=== PATIENT | male | born 1965 | race Caucasian/White ===

== ENCOUNTER 2021-03-15 17:44 | Inpatient (IN) | payer OTHER ==
[~2021-03-15] VITALS: Ht 180.3 cm; Wt 87.6 kg
[2021-03-15] MEDS ORDERED: ACETAMINOPHEN 325 MG TABLET PO PRN (22:00)
[2021-03-15] MEDS ORDERED: ALBUTEROL SULFATE HFA 90 MCG/PUFF 8 GM INHALER IH ONE (22:00)
[2021-03-15] MEDS ORDERED: MAGNESIUM HYDROXIDE SUSPENSION 30 ML UDCUP PO PRN (22:00)
[2021-03-15 22:17] LABS: BASOPHILS % (AUTO) 1.7 % (0.0-2.0); EOSINOPHILS % (AUTO) 0.7 % (1.0-6.0); HEMOGLOBIN 18.4 g/dL (13.5-17.5); LYMPHOCYTES # (AUTO) 2.1 K/uL (1.0-4.8); LYMPHOCYTES % (AUTO) 29.1 % (22.0-44.0); MEAN CORPUSCULAR HEMOGLOBIN 31.4 pg (26.0-34.0); MEAN CORPUSCULAR HGB CONC 33.3 G/dL (31.0-37.0); MEAN CORPUSCULAR VOLUME 94 fL (80-100); MONOCYTES # (AUTO) 0.7 K/uL (0.1-1.0); MONOCYTES % (AUTO) 9.7 % (2.0-9.0); NEUTROPHILS # (AUTO) 4.3 K/uL (1.8-7.7); NEUTROPHILS % (AUTO) 58.8 % (40.0-70.0); PLATELET COUNT (AUTO) 147 K/uL (150-450); RED BLOOD CELL COUNT(AUTO) 5.87 MIL/uL (4.50-5.90)
[2021-03-15 22:18] LABS: HEMATOCRIT 55.4 % (41-53)
[2021-03-15 22:22] LABS: CALCIUM, TOTAL 9.5 mg/dL (8.8-10.5); CREATININE 2.03 mg/dL (0.60-1.30); POTASSIUM 4.7 mmol/L (3.5-5.1)
[2021-03-15 22:27] LABS: ABG BASE EXCESS -6.9 mmol/L (-2.0-3.0); ABG CARBOXYHEMOGLOBIN 0.3 % (0.0-1.5); ABG HCO3 20.6 mmol/L (22.0-26.0); ABG METHEMOGLOBIN 0.3 % (0.0-1.5); ABG OXYGEN CONTENT 24.2 mL/dL (15.0-23.0); ABG OXYGEN SATURATION 89.7 % (95.0-98.0); ABG OXYHEMOGLOBIN 89.2 % (94.0-100.0); ABG PCO2 26 mmHg (35-45); ABG PH 7.437 (7.35-7.450); ABG TOTAL HEMOGLOBIN 19.4 G/dL (12.0-18.0); O2 DEVICE,BLOOD GAS NRB (ROOM AIR); PO2, ARTERIAL BG 57.7 mmHg (84.0-92.0); SITE, BLOOD GAS RT RADIAL; SOURCE, BLOOD GAS ARTERIAL; TEMPERATURE, FAHRENHEIT, BG 98.6 FAHREN (96.0-98.6)
[2021-03-15 22:34] LABS: COVID AG,FIA SOURCE NASOPHARYNGEAL
[2021-03-15 22:44] LABS: APPEARANCE,URINE CLEAR (CLEAR); BILIRUBIN,URINE NEGATIVE (NEGATIVE); GLUCOSE, URINE (UA) NEGATIVE (NEGATIVE); KETONES,URINE TRACE mg/dL (NEGATIVE); LEUKOCYTE ESTERASE ,URINE NEGATIVE (NEGATIVE); NITRATE,URINE NEGATIVE (NEGATIVE); OCCULT BLOOD,URINE NEGATIVE (NEGATIVE); PROTEIN,URINE POS 1+ (NEGATIVE); UROBILINOGEN,URINE 0.2 mg/dL (<=1.0)
[2021-03-15 22:47] LABS: ALBUMIN 4.2 g/dL (3.4-5.0); BILIRUBIN,TOTAL 2.5 mg/dL (0.1-1.0); TOTAL PROTEIN, SERUM 8.3 g/dL (6.4-8.2)
[2021-03-15 22:51] LABS: AMPHET/METH SCREEN,URINE POSITIVE (NEGATIVE); BARBITURATE SCREEN, URINE NEGATIVE (NEGATIVE); BENZODIAZEPINES SCREEN,URINE NEGATIVE (NEGATIVE); CANNABINOID SCREEN,URINE NEGATIVE (NEGATIVE); COCAINE SCREEN,URINE NEGATIVE (NEGATIVE); METHADONE SCREEN, URINE NEGATIVE (NEGATIVE); OPIATE SCREEN,URINE NEGATIVE (NEGATIVE)
[2021-03-15 22:55] LABS: PHENCYCLIDINE SCREEN,URINE NEGATIVE (NEGATIVE)
[2021-03-15] MEDS: HEPARIN SODIUM,PORCINE 5,000 UNITS/ML VIAL SQ SCH (23:59)
[2021-03-16] MEDS: HEPARIN SODIUM,PORCINE 5,000 UNITS/ML VIAL SQ SCH ×2 (07:20→16:53)
[2021-03-16] MEDS: FAMOTIDINE 20 MG TABLET PO SCH (08:56)
[2021-03-16 10:18] VITALS: BP 129/79
[2021-03-16 11:00] VITALS: BP 123/86
[2021-03-16] MEDS: METOPROLOL TARTRATE 25 MG TABLET PO SCH ×2 (11:44→21:00)
[2021-03-16] MEDS: ASPIRIN 81 MG CHEWABLE TABLET PO SCH (11:44)
[2021-03-16 15:50] VITALS: BP 115/83
[2021-03-16] MEDS ORDERED: INFLUENZA VIRUS VACCINE QVS 2021-22 (6MO+)/PF 60 MCG/0.5 ML SYRINGE IM. ONE (17:15)
[2021-03-16 20:07] VITALS: BP 104/54
[2021-03-16] MEDS ORDERED: FUROSEMIDE 20 MG/2 ML VIAL IVP ONE (20:45)
[2021-03-17 00:03] VITALS: BP 113/75
[2021-03-17] MEDS: HEPARIN SODIUM,PORCINE 5,000 UNITS/ML VIAL SQ SCH ×2 (00:25→08:41)
[2021-03-17 04:00] VITALS: BP 110/75
[2021-03-17 08:00] VITALS: BP 118/81
[2021-03-17] MEDS: FAMOTIDINE 20 MG TABLET PO SCH (08:41)
[2021-03-17] MEDS: ASPIRIN 81 MG CHEWABLE TABLET PO SCH (08:41)
[2021-03-17] MEDS: METOPROLOL TARTRATE 25 MG TABLET PO SCH ×2 (08:42→20:56)
[2021-03-17 12:13] VITALS: BP 108/67
[2021-03-17 13:55] LABS: EOSINOPHILS % (AUTO) 0.8 % (1.0-6.0); LYMPHOCYTES # (AUTO) 1.2 K/uL (1.0-4.8); LYMPHOCYTES % (AUTO) 18.2 % (22.0-44.0); MEAN CORPUSCULAR HEMOGLOBIN 31.6 pg (26.0-34.0); MEAN CORPUSCULAR HGB CONC 33.5 G/dL (31.0-37.0); MEAN CORPUSCULAR VOLUME 94 fL (80-100); MONOCYTES # (AUTO) 0.7 K/uL (0.1-1.0); NEUTROPHILS # (AUTO) 4.6 K/uL (1.8-7.7); PLATELET COUNT (AUTO) 151 K/uL (150-450); RED BLOOD CELL COUNT(AUTO) 6.05 MIL/uL (4.50-5.90); RED CELL DISTRIBUTION WIDTH 15.1 % (11.5-14.5)
[2021-03-17] MEDS: FUROSEMIDE 20 MG TABLET PO SCH (13:55)
[2021-03-17 14:00] LABS: HEMOGLOBIN 19.1 g/dL (13.5-17.5)
[2021-03-17 14:01] LABS: CALCIUM, TOTAL 9.2 mg/dL (8.8-10.5); CREATININE 1.37 mg/dL (0.60-1.30); HEMATOCRIT 57.1 % (41-53); POTASSIUM 4.3 mmol/L (3.5-5.1)
[2021-03-17] MEDS ORDERED: HEPARIN SODIUM,PORCINE 5,000 UNITS/ML VIAL IVP ONE (17:15)
[2021-03-17] MEDS ORDERED: HEPARIN SODIUM 25000 UNITS/D5W 250 ML IV PRN (17:15)
[2021-03-17] MEDS ORDERED: HEPARIN SODIUM,PORCINE 5,000 UNITS/ML VIAL IVP PRN ×2 (17:15)
[2021-03-17 17:26] LABS: ABG BASE EXCESS -0.9 mmol/L (-2.0-3.0); ABG CARBOXYHEMOGLOBIN 0.3 % (0.0-1.5); ABG HCO3 24.4 mmol/L (22.0-26.0); ABG OXYGEN CONTENT 24.9 mL/dL (15.0-23.0); ABG OXYGEN SATURATION 88.8 % (95.0-98.0); ABG OXYHEMOGLOBIN 88.5 % (94.0-100.0); ABG PCO2 33 mmHg (35-45); ABG PH 7.464 (7.35-7.450); ABG TOTAL HEMOGLOBIN 20.1 G/dL (12.0-18.0); O2 DEVICE,BLOOD GAS HI FL CANNULA (ROOM AIR); PO2, ARTERIAL BG 56.4 mmHg (84.0-92.0); SITE, BLOOD GAS RT RADIAL; SOURCE, BLOOD GAS ARTERIAL; TEMPERATURE, FAHRENHEIT, BG 98.6 FAHREN (96.0-98.6)
[2021-03-17 17:50] LABS: BASOPHILS % (AUTO) 0.6 % (0.0-2.0); EOSINOPHILS % (AUTO) 0.7 % (1.0-6.0); HEMATOCRIT 54.5 % (41-53); HEMOGLOBIN 18.4 g/dL (13.5-17.5); LYMPHOCYTES # (AUTO) 1.4 K/uL (1.0-4.8); LYMPHOCYTES % (AUTO) 19.3 % (22.0-44.0); MEAN CORPUSCULAR HEMOGLOBIN 31.4 pg (26.0-34.0); MEAN CORPUSCULAR HGB CONC 33.7 G/dL (31.0-37.0); MEAN CORPUSCULAR VOLUME 93 fL (80-100); MONOCYTES # (AUTO) 0.7 K/uL (0.1-1.0); MONOCYTES % (AUTO) 10.5 % (2.0-9.0); NEUTROPHILS # (AUTO) 4.9 K/uL (1.8-7.7); NEUTROPHILS % (AUTO) 68.9 % (40.0-70.0); PLATELET COUNT (AUTO) 143 K/uL (150-450); RED BLOOD CELL COUNT(AUTO) 5.86 MIL/uL (4.50-5.90)
[2021-03-17 18:03] LABS: INR 1.2 (0.9-1.1); PROTHROMBIN TIME 12.8 SEC (9.4-11.6)
[2021-03-17 19:15] VITALS: BP 125/71
[2021-03-17] MEDS ORDERED: PENTETATE DTPA TC99M/MCL ISOTOPE 1 EA INJ INJ ONE (21:30)
[2021-03-17] MEDS ORDERED: MAA ALBUMIN AGGREGATED TC99M/UD<10MCL ISOTOPE 1 EA INJ INJ ONE (22:10)
[2021-03-17 23:48] VITALS: BP 131/64
[2021-03-18 04:05] VITALS: BP 112/76
[2021-03-18 07:01] VITALS: BP 105/77
[2021-03-18 07:08] LABS: BASOPHILS % (AUTO) 0.9 % (0.0-2.0); EOSINOPHILS % (AUTO) 0.8 % (1.0-6.0); HEMATOCRIT 54.9 % (41-53); HEMOGLOBIN 18.6 g/dL (13.5-17.5); LYMPHOCYTES # (AUTO) 1.8 K/uL (1.0-4.8); LYMPHOCYTES % (AUTO) 25.2 % (22.0-44.0); MEAN CORPUSCULAR HEMOGLOBIN 31.6 pg (26.0-34.0); MEAN CORPUSCULAR HGB CONC 33.9 G/dL (31.0-37.0); MEAN CORPUSCULAR VOLUME 93 fL (80-100); MONOCYTES # (AUTO) 0.8 K/uL (0.1-1.0); MONOCYTES % (AUTO) 10.7 % (2.0-9.0); NEUTROPHILS # (AUTO) 4.4 K/uL (1.8-7.7); NEUTROPHILS % (AUTO) 62.4 % (40.0-70.0); RED BLOOD CELL COUNT(AUTO) 5.89 MIL/uL (4.50-5.90); RED CELL DISTRIBUTION WIDTH 14.4 % (11.5-14.5)
[2021-03-18 07:34] LABS: ALBUMIN 3.4 g/dL (3.4-5.0); BILIRUBIN,TOTAL 2.1 mg/dL (0.1-1.0); CREATININE 1.32 mg/dL (0.60-1.30); POTASSIUM 3.9 mmol/L (3.5-5.1); TOTAL PROTEIN, SERUM 7.3 g/dL (6.4-8.2)
[2021-03-18 08:02] LABS: PLATELET COUNT (AUTO) 133 K/uL (150-450)
[2021-03-18] MEDS: METOPROLOL TARTRATE 25 MG TABLET PO SCH ×2 (09:15→21:13)
[2021-03-18] MEDS: ASPIRIN 81 MG CHEWABLE TABLET PO SCH (09:15)
[2021-03-18] MEDS: FAMOTIDINE 20 MG TABLET PO SCH (09:15)
[2021-03-18] MEDS: FUROSEMIDE 20 MG TABLET PO SCH (09:15)
[2021-03-18 11:41] VITALS: BP 154/82
[2021-03-18 14:52] VITALS: BP 138/78
[2021-03-18 19:58] VITALS: BP 116/74
[2021-03-18] MEDS: HydrOXYzine HCL 25 MG TABLET PO PRN (21:13)
[2021-03-18 23:09] VITALS: BP 137/88
[2021-03-19 04:32] VITALS: BP 125/58
[2021-03-19 07:16] VITALS: BP 116/79
[2021-03-19] MEDS: FAMOTIDINE 20 MG TABLET PO SCH (08:35)
[2021-03-19] MEDS: ASPIRIN 81 MG CHEWABLE TABLET PO SCH (08:35)
[2021-03-19] MEDS: METOPROLOL TARTRATE 25 MG TABLET PO SCH ×2 (08:36→20:36)
[2021-03-19] MEDS: FUROSEMIDE 20 MG TABLET PO SCH (08:36)
[2021-03-19] MEDS: HydrOXYzine HCL 25 MG TABLET PO PRN ×2 (10:45→17:34)
[2021-03-19 12:45] VITALS: BP 100/71
[2021-03-19 15:34] VITALS: BP 110/71
[2021-03-19] MEDS: HEPARIN SODIUM,PORCINE 5,000 UNITS/ML VIAL SQ SCH (16:00)
[2021-03-19 20:25] VITALS: BP 108/70
[2021-03-20] VITALS (7 sets, daily range): BP systolic 99–147; BP diastolic 68–90
[2021-03-20 07:34] LABS: BASOPHILS % (AUTO) 1.3 % (0.0-2.0); HEMATOCRIT 52.9 % (41-53); HEMOGLOBIN 17.9 g/dL (13.5-17.5); LYMPHOCYTES # (AUTO) 2.1 K/uL (1.0-4.8); LYMPHOCYTES % (AUTO) 32.5 % (22.0-44.0); MEAN CORPUSCULAR HEMOGLOBIN 31.5 pg (26.0-34.0); MEAN CORPUSCULAR HGB CONC 33.8 G/dL (31.0-37.0); MEAN CORPUSCULAR VOLUME 93 fL (80-100); MONOCYTES # (AUTO) 0.8 K/uL (0.1-1.0); NEUTROPHILS # (AUTO) 3.3 K/uL (1.8-7.7); NEUTROPHILS % (AUTO) 52.2 % (40.0-70.0); PLATELET COUNT (AUTO) 130 K/uL (150-450); RED BLOOD CELL COUNT(AUTO) 5.69 MIL/uL (4.50-5.90); RED CELL DISTRIBUTION WIDTH 14.9 % (11.5-14.5)
[2021-03-20] MEDS: HEPARIN SODIUM,PORCINE 5,000 UNITS/ML VIAL SQ SCH ×4 (08:00→23:32)
[2021-03-20 08:26] LABS: ANION GAP 12 mmol/L (8-16); CALCIUM, TOTAL 8.8 mg/dL (8.8-10.5); CARBON DIOXIDE 24 mmol/L (22-29); CHLORIDE 105 mmol/L (98-107); CREATININE 1.08 mg/dL (0.60-1.30); FERRITIN 243 ng/mL (26-388); GLOMERULAR FILTR. RATE CALC > 60 mL/min (>60); GLUCOSE,RANDOM 77 mg/dL (70-110); POTASSIUM 3.9 mmol/L (3.5-5.1); SODIUM SERUM 141 mmol/L (136-145); UREA NITROGEN, BLOOD 23 mg/dL (7-18)
[2021-03-20] MEDS: FUROSEMIDE 20 MG TABLET PO SCH (09:02)
[2021-03-20] MEDS: METOPROLOL TARTRATE 25 MG TABLET PO SCH ×2 (09:03→21:12)
[2021-03-20] MEDS: FAMOTIDINE 20 MG TABLET PO SCH (09:04)
[2021-03-20] MEDS: ASPIRIN 81 MG CHEWABLE TABLET PO SCH (09:04)
[2021-03-20] MEDS: HydrOXYzine HCL 25 MG TABLET PO PRN ×3 (09:14→23:31)
[2021-03-21 04:02] VITALS: BP 111/67
[2021-03-21] MEDS: HEPARIN SODIUM,PORCINE 5,000 UNITS/ML VIAL SQ SCH ×3 (08:00→23:08)
[2021-03-21 08:43] VITALS: BP 104/73
[2021-03-21] MEDS: FUROSEMIDE 20 MG TABLET PO SCH (09:00)
[2021-03-21] MEDS: HydrOXYzine HCL 25 MG TABLET PO PRN ×2 (09:01→16:00)
[2021-03-21] MEDS: ASPIRIN 81 MG CHEWABLE TABLET PO SCH (09:01)
[2021-03-21] MEDS: FAMOTIDINE 20 MG TABLET PO SCH (09:02)
[2021-03-21] MEDS: METOPROLOL TARTRATE 25 MG TABLET PO SCH ×2 (09:02→20:28)
[2021-03-21 12:26] VITALS: BP 137/64
[2021-03-21 16:26] VITALS: BP 110/68
[2021-03-21 19:44] VITALS: BP 103/73
[2021-03-21] MEDS: HYDROCORTISONE 25 MG RECTAL SUPPOSITORY PR SCH (21:15)
[2021-03-21 23:42] VITALS: BP 111/68
[2021-03-22 04:55] VITALS: BP 102/59
[2021-03-22] MEDS: HydrOXYzine HCL 25 MG TABLET PO PRN ×3 (05:20→23:31)
[2021-03-22] MEDS: HEPARIN SODIUM,PORCINE 5,000 UNITS/ML VIAL SQ SCH ×3 (08:00→23:06)
[2021-03-22 08:07] VITALS: BP 112/85
[2021-03-22] MEDS: FUROSEMIDE 20 MG TABLET PO SCH (08:54)
[2021-03-22] MEDS: FAMOTIDINE 20 MG TABLET PO SCH (08:54)
[2021-03-22] MEDS: ASPIRIN 81 MG CHEWABLE TABLET PO SCH (08:55)
[2021-03-22] MEDS: METOPROLOL TARTRATE 25 MG TABLET PO SCH ×2 (08:55→21:00)
[2021-03-22] MEDS: HYDROCORTISONE 25 MG RECTAL SUPPOSITORY PR SCH ×2 (09:00→21:00)
[2021-03-22 11:44] VITALS: BP 101/60
[2021-03-22 16:05] VITALS: BP 94/60
[2021-03-22 20:00] VITALS: BP 98/65
[2021-03-23 00:15] VITALS: BP 95/57
[2021-03-23 04:25] VITALS: BP 99/66
[2021-03-23 07:44] VITALS: BP 103/74
[2021-03-23] MEDS: HEPARIN SODIUM,PORCINE 5,000 UNITS/ML VIAL SQ SCH ×3 (08:00→23:35)
[2021-03-23] MEDS: METOPROLOL TARTRATE 25 MG TABLET PO SCH ×2 (08:08→20:49)
[2021-03-23] MEDS: HYDROCORTISONE 25 MG RECTAL SUPPOSITORY PR SCH ×2 (08:09→20:49)
[2021-03-23] MEDS: FUROSEMIDE 20 MG TABLET PO SCH (08:12)
[2021-03-23] MEDS: ASPIRIN 81 MG CHEWABLE TABLET PO SCH (08:12)
[2021-03-23] MEDS: FAMOTIDINE 20 MG TABLET PO SCH (08:12)
[2021-03-23] MEDS: HydrOXYzine HCL 25 MG TABLET PO PRN ×3 (08:13→22:55)
[2021-03-23 11:54] VITALS: BP 104/70
[2021-03-23 15:25] VITALS: BP 128/89
[2021-03-23 19:25] VITALS: BP 120/50
[2021-03-24 00:14] VITALS: BP 106/58
[2021-03-24 05:01] VITALS: BP 106/78
[2021-03-24 07:32] VITALS: BP 101/74
[2021-03-24] MEDS: HEPARIN SODIUM,PORCINE 5,000 UNITS/ML VIAL SQ SCH ×2 (08:00→16:00)
[2021-03-24] MEDS: ASPIRIN 81 MG CHEWABLE TABLET PO SCH (08:16)
[2021-03-24] MEDS: FUROSEMIDE 20 MG TABLET PO SCH (08:16)
[2021-03-24] MEDS: METOPROLOL TARTRATE 25 MG TABLET PO SCH ×2 (08:17→19:46)
[2021-03-24] MEDS: FAMOTIDINE 20 MG TABLET PO SCH (08:17)
[2021-03-24] MEDS: HydrOXYzine HCL 25 MG TABLET PO PRN (08:19)
[2021-03-24] MEDS: HYDROCORTISONE 25 MG RECTAL SUPPOSITORY PR SCH ×2 (08:20→19:38)
[2021-03-24 11:39] VITALS: BP 109/77
[2021-03-24 13:36] VITALS: BP 125/83
[2021-03-24] MEDS: ZOLPIDEM TARTRATE 5 MG TABLET PO PRN (19:46)
[2021-03-24 19:48] VITALS: BP 106/57
[2021-03-25 06:11] VITALS: BP 111/61
[2021-03-25] MEDS: FAMOTIDINE 20 MG TABLET PO SCH (08:00)
[2021-03-25] MEDS: HEPARIN SODIUM,PORCINE 5,000 UNITS/ML VIAL SQ SCH ×4 (08:00→20:34)
[2021-03-25] MEDS: ASPIRIN 81 MG CHEWABLE TABLET PO SCH (08:00)
[2021-03-25 08:07] VITALS: BP 98/74
[2021-03-25] MEDS: HYDROCORTISONE 25 MG RECTAL SUPPOSITORY PR SCH ×2 (09:00→20:19)
[2021-03-25] MEDS: METOPROLOL TARTRATE 25 MG TABLET PO SCH ×2 (09:00→20:24)
[2021-03-25] MEDS: FUROSEMIDE 20 MG TABLET PO SCH (11:20)
[2021-03-25 11:22] VITALS: BP 114/81
[2021-03-25] MEDS: HydrOXYzine HCL 25 MG TABLET PO PRN ×2 (16:48→21:32)
[2021-03-25 20:35] VITALS: BP 104/74
[2021-03-25] MEDS: ZOLPIDEM TARTRATE 5 MG TABLET PO PRN (22:29)
[2021-03-26 05:30] VITALS: BP 103/55
[2021-03-26] MEDS: HEPARIN SODIUM,PORCINE 5,000 UNITS/ML VIAL SQ SCH ×3 (08:00→20:34)
[2021-03-26 08:02] VITALS: BP 100/78
[2021-03-26] MEDS: ASPIRIN 81 MG CHEWABLE TABLET PO SCH (08:38)
[2021-03-26] MEDS: FAMOTIDINE 20 MG TABLET PO SCH (08:38)
[2021-03-26] MEDS: HYDROCORTISONE 25 MG RECTAL SUPPOSITORY PR SCH ×2 (09:00→20:34)
[2021-03-26] MEDS: METOPROLOL TARTRATE 25 MG TABLET PO SCH ×2 (09:00→20:33)
[2021-03-26 11:27] VITALS: BP_SYST 112; BP_DIAS 18; BP_DIAS 88
[2021-03-26] MEDS: HydrOXYzine HCL 25 MG TABLET PO PRN ×2 (12:25→20:33)
[2021-03-26] MEDS: FUROSEMIDE 20 MG TABLET PO SCH (12:25)
[2021-03-26 15:16] VITALS: BP 103/56
[2021-03-26 20:31] VITALS: BP 115/84
[2021-03-26] MEDS: ZOLPIDEM TARTRATE 5 MG TABLET PO PRN (20:33)
[2021-03-27 05:18] VITALS: BP 102/64
[2021-03-27 07:51] VITALS: BP 98/70
[2021-03-27] MEDS: HEPARIN SODIUM,PORCINE 5,000 UNITS/ML VIAL SQ SCH ×4 (08:00→23:20)
[2021-03-27] MEDS: ASPIRIN 81 MG CHEWABLE TABLET PO SCH (08:37)
[2021-03-27] MEDS: FAMOTIDINE 20 MG TABLET PO SCH (08:37)
[2021-03-27] MEDS: METOPROLOL TARTRATE 25 MG TABLET PO SCH ×2 (08:39→21:35)
[2021-03-27] MEDS: FUROSEMIDE 20 MG TABLET PO SCH (08:39)
[2021-03-27] MEDS: HYDROCORTISONE 25 MG RECTAL SUPPOSITORY PR SCH ×2 (08:42→20:40)
[2021-03-27 20:01] VITALS: BP 107/71
[2021-03-27] MEDS: ZOLPIDEM TARTRATE 5 MG TABLET PO PRN (21:35)
[2021-03-28 07:00] VITALS: BP 103/69
[2021-03-28] MEDS: HEPARIN SODIUM,PORCINE 5,000 UNITS/ML VIAL SQ SCH ×3 (08:00→22:36)
[2021-03-28] MEDS: HYDROCORTISONE 25 MG RECTAL SUPPOSITORY PR SCH ×2 (09:00→21:00)
[2021-03-28] MEDS: FAMOTIDINE 20 MG TABLET PO SCH (09:33)
[2021-03-28] MEDS: FUROSEMIDE 20 MG TABLET PO SCH (09:33)
[2021-03-28] MEDS: METOPROLOL TARTRATE 25 MG TABLET PO SCH ×2 (09:34→21:26)
[2021-03-28] MEDS: ASPIRIN 81 MG CHEWABLE TABLET PO SCH (09:34)
[2021-03-28] MEDS: HydrOXYzine HCL 25 MG TABLET PO PRN (14:42)
[2021-03-28 15:26] VITALS: BP 112/73
[2021-03-28 20:04] VITALS: BP 113/76
[2021-03-28] MEDS: ZOLPIDEM TARTRATE 5 MG TABLET PO PRN (21:26)
[2021-03-29 04:50] VITALS: BP 113/84
[2021-03-29 07:58] VITALS: BP 116/56
[2021-03-29] MEDS: HEPARIN SODIUM,PORCINE 5,000 UNITS/ML VIAL SQ SCH ×2 (08:00→16:00)
[2021-03-29] MEDS: FAMOTIDINE 20 MG TABLET PO SCH (08:15)
[2021-03-29] MEDS: METOPROLOL TARTRATE 25 MG TABLET PO SCH ×2 (08:15→20:13)
[2021-03-29] MEDS: ASPIRIN 81 MG CHEWABLE TABLET PO SCH (08:15)
[2021-03-29] MEDS: FUROSEMIDE 20 MG TABLET PO SCH (08:15)
[2021-03-29] MEDS: HYDROCORTISONE 25 MG RECTAL SUPPOSITORY PR SCH ×2 (08:17→20:17)
[2021-03-29] MEDS: HydrOXYzine HCL 25 MG TABLET PO PRN (12:41)
[2021-03-29 19:41] VITALS: BP 119/84
[2021-03-29] MEDS: ZOLPIDEM TARTRATE 5 MG TABLET PO PRN (20:13)
[2021-03-30 04:50] VITALS: BP 100/72
[2021-03-30 07:46] VITALS: BP 100/63
[2021-03-30] MEDS: HEPARIN SODIUM,PORCINE 5,000 UNITS/ML VIAL SQ SCH ×3 (08:00→16:00)
[2021-03-30] MEDS: HYDROCORTISONE 25 MG RECTAL SUPPOSITORY PR SCH ×2 (09:00→20:32)
[2021-03-30] MEDS: METOPROLOL TARTRATE 25 MG TABLET PO SCH ×2 (09:00→20:31)
[2021-03-30] MEDS: FAMOTIDINE 20 MG TABLET PO SCH (09:25)
[2021-03-30] MEDS: FUROSEMIDE 20 MG TABLET PO SCH (09:25)
[2021-03-30] MEDS: ASPIRIN 81 MG CHEWABLE TABLET PO SCH (09:25)
[2021-03-30] MEDS: HydrOXYzine HCL 25 MG TABLET PO PRN (14:10)
[2021-03-30 15:52] VITALS: BP 124/61
[2021-03-30] MEDS ORDERED: ASPI81TA87 PO (17:04)
[2021-03-30] MEDS ORDERED: FURO20 PO (17:05)
[2021-03-30] MEDS ORDERED: METO25 PO (17:05)
[2021-03-30] MEDS ORDERED: FAMO20 PO (17:05)
[2021-03-30 20:26] VITALS: BP 107/57
[2021-03-30] MEDS: ZOLPIDEM TARTRATE 5 MG TABLET PO PRN (20:30)
[2021-03-31] MEDS: HEPARIN SODIUM,PORCINE 5,000 UNITS/ML VIAL SQ SCH
[2021-03-31 04:42] VITALS: BP 115/74
[2021-03-31 06:36] LABS: BASOPHILS % (AUTO) 0.9 % (0.0-2.0); EOSINOPHILS % (AUTO) 1.2 % (1.0-6.0); HEMATOCRIT 52.3 % (41-53); HEMOGLOBIN 17.7 g/dL (13.5-17.5); LYMPHOCYTES # (AUTO) 1.9 K/uL (1.0-4.8); LYMPHOCYTES % (AUTO) 27.7 % (22.0-44.0); MEAN CORPUSCULAR HEMOGLOBIN 31.6 pg (26.0-34.0); MEAN CORPUSCULAR HGB CONC 33.8 G/dL (31.0-37.0); MEAN CORPUSCULAR VOLUME 94 fL (80-100); MONOCYTES # (AUTO) 0.8 K/uL (0.1-1.0); NEUTROPHILS # (AUTO) 4.1 K/uL (1.8-7.7); NEUTROPHILS % (AUTO) 58.2 % (40.0-70.0); PLATELET COUNT (AUTO) 137 K/uL (150-450); RED BLOOD CELL COUNT(AUTO) 5.59 MIL/uL (4.50-5.90); RED CELL DISTRIBUTION WIDTH 15.3 % (11.5-14.5)
[2021-03-31 07:00] LABS: ALANINE AMINOTRANSFERASE 45 U/L (12-78); ALBUMIN 3.3 g/dL (3.4-5.0); ALKALINE PHOSPHATASE 125 U/L (46-116); ANION GAP 6 mmol/L (8-16); ASPARTATE AMINOTRANSFERASE 34 U/L (15-37); BILIRUBIN,TOTAL 1.6 mg/dL (0.1-1.0); CALCIUM, TOTAL 8.9 mg/dL (8.8-10.5); CARBON DIOXIDE 26 mmol/L (22-29); CHLORIDE 106 mmol/L (98-107); CREATININE 1.15 mg/dL (0.60-1.30); GLOMERULAR FILTR. RATE CALC > 60 mL/min (>60); GLUCOSE,RANDOM 72 mg/dL (70-110); POTASSIUM 4.2 mmol/L (3.5-5.1); SODIUM SERUM 138 mmol/L (136-145); TOTAL PROTEIN, SERUM 6.9 g/dL (6.4-8.2); UREA NITROGEN, BLOOD 25 mg/dL (7-18)
== END 2021-03-31 07:20 | DRG 280 ==
LOC: EMS 17:48 → 6S 03-16 05:00 → 5S 03-16 10:36 → 6S 03-24 13:20
PROVIDERS: ADMIT Internal Medicine; ATTEND Internal Medicine
PROC: 5A0935A Assistance with Respiratory Ventilation, Less than 24 Consecutive Hours, High Flow/Velocity Cannula (ICD-10-PCS; principal; 2021-03-16)
PROC: 5A0945A Assistance with Respiratory Ventilation, 24-96 Consecutive Hours, High Flow/Velocity Cannula (ICD-10-PCS; 2021-03-17)
PROC: 5A0945A Assistance with Respiratory Ventilation, 24-96 Consecutive Hours, High Flow/Velocity Cannula (ICD-10-PCS; 2021-03-17)
PROC: 5A0935A Assistance with Respiratory Ventilation, Less than 24 Consecutive Hours, High Flow/Velocity Cannula (ICD-10-PCS; 2021-03-21)
PROC: 5A0935A Assistance with Respiratory Ventilation, Less than 24 Consecutive Hours, High Flow/Velocity Cannula (ICD-10-PCS; 2021-03-22)
PROC: 5A0935A Assistance with Respiratory Ventilation, Less than 24 Consecutive Hours, High Flow/Velocity Cannula (ICD-10-PCS; 2021-03-23)
PROC: 5A0935A Assistance with Respiratory Ventilation, Less than 24 Consecutive Hours, High Flow/Velocity Cannula (ICD-10-PCS; 2021-03-24)
PROC: 5A0935A Assistance with Respiratory Ventilation, Less than 24 Consecutive Hours, High Flow/Velocity Cannula (ICD-10-PCS; 2021-03-25)
DX: I21.4 Non-ST elevation (NSTEMI) myocardial infarction (principal); J96.21 Acute and chronic respiratory failure with hypoxia; I13.0 Hypertensive heart and chronic kidney disease with heart failure and stage 1 through stage 4 chronic kidney disease, or unspecified chronic kidney disease; N17.9 Acute kidney failure, unspecified; I50.813 Acute on chronic right heart failure; Z66 Do not resuscitate; E78.00 Pure hypercholesterolemia, unspecified; E78.5 Hyperlipidemia, unspecified; D75.1 Secondary polycythemia; I27.29 Other secondary pulmonary hypertension; I25.10 Atherosclerotic heart disease of native coronary artery without angina pectoris; N18.9 Chronic kidney disease, unspecified; K64.9 Unspecified hemorrhoids; Z20.822 Contact with and (suspected) exposure to COVID-19; F19.10 Other psychoactive substance abuse, uncomplicated; F17.210 Nicotine dependence, cigarettes, uncomplicated; Z99.81 Dependence on supplemental oxygen; Z91.19 Patient's noncompliance with other medical treatment and regimen; Z91.041 Radiographic dye allergy status
CPT/HCPCS: 36600; 71045; 78582; 80048; 80053; 81003; 82271; 82550; 82728; 82805; 83540; 83550; 83880; 84484; 85025; 85610; 85730; 93005; 93306; 93970; 94760; 94761; 99285; A9539; A9540; J1644; J1940; J3535; 36415-L1; 36415-TC

== ENCOUNTER 2021-08-29 13:48 | Inpatient (IN) | payer MEDICAID, OTHER ==
[~2021-08-29] VITALS: Ht 172.7 cm; Wt 98.7 kg
[~2021-08-29 13:48] MED LIST: ACET-2247 PO; ASPI81TA87 PO; BISA10SU11 PR; BUME1TAB34 PO; DOCU-385 PO; HEPA500018 SQ; HYDR-4723 PO; LOPE2 PO; LOSA-382 PO; MAGN-169 PO; MORP1VIA7 IVP; ONDA4VIA22 IV; PANT-31 PO; POTA-92 PO; SILD20TA PO; SPIR-37 PO; ZOLP-280 PO
[2021-08-29] MEDS ORDERED: KETOROLAC TROMETHAMINE 10 MG TABLET PO ONE (19:15)
[2021-08-29] MEDS ORDERED: SODIUM CHLORIDE 0.9% 1,000 ML IV ONE (21:15)
[2021-08-29 21:39] LABS: BASOPHILS % (AUTO) 0.4 % (0.0-2.0); EOSINOPHILS % (AUTO) 0.6 % (1.0-6.0); HEMOGLOBIN 14.2 g/dL (13.5-17.5); LYMPHOCYTES % (AUTO) 5.3 % (22.0-44.0); MEAN CORPUSCULAR VOLUME 91 fL (80-100); MONOCYTES # (AUTO) 1.2 K/uL (0.1-1.0); MONOCYTES % (AUTO) 6.7 % (2.0-9.0); NEUTROPHILS # (AUTO) 16.1 K/uL (1.8-7.7); PLATELET COUNT (AUTO) 188 K/uL (150-450); RED BLOOD CELL COUNT(AUTO) 4.73 MIL/uL (4.50-5.90); RED CELL DISTRIBUTION WIDTH 15.4 % (11.5-14.5)
[2021-08-29 21:47] LABS: CALCIUM, TOTAL 8.4 mg/dL (8.8-10.5); CREATININE 2.6 mg/dL (0.60-1.30); POTASSIUM 3.8 mmol/L (3.5-5.1)
[2021-08-29 21:54] LABS: BILIRUBIN,TOTAL 2.5 mg/dL (0.1-1.0)
[2021-08-29 21:55] LABS: TOTAL PROTEIN, SERUM 6.6 g/dL (6.4-8.2)
[2021-08-29 21:56] LABS: LACTIC ACID 1.8 mmol/L (0.4-2.0)
[2021-08-29] MEDS ORDERED: SODIUM CHLORIDE 0.9% 500 ML IV ONE (23:00)
[2021-08-30] MEDS ORDERED: MORPHINE SULFATE 4 MG/ML SYRINGE IVP ONE (00:45)
[2021-08-30] MEDS ORDERED: SODIUM CHLORIDE 0.9% 500 ML IV ONE (01:45)
[2021-08-30 03:06] LABS: APPEARANCE,URINE CLEAR (CLEAR); BILIRUBIN,URINE NEGATIVE (NEGATIVE); GLUCOSE, URINE (UA) NEGATIVE (NEGATIVE); KETONES,URINE NEGATIVE (NEGATIVE); LEUKOCYTE ESTERASE ,URINE TRACE (NEGATIVE); NITRATE,URINE NEGATIVE (NEGATIVE); OCCULT BLOOD,URINE NEGATIVE (NEGATIVE); PROTEIN,URINE NEGATIVE (NEGATIVE); SPECIFIC GRAVITIY, URINE 1.011 (1.003-1.030)
[2021-08-30 03:20] LABS: BACTERIA,URINE None Seen /HPF (None Seen); RBC,URINE None Seen /HPF (0-2); WBC,URINE 0-2 /HPF (0-5)
[2021-08-30 04:04] LABS: COVID AG,FIA SOURCE NASOPHARYNGEAL
[2021-08-30 05:57] VITALS: BP_SYST 104; BP_SYST 161; BP_DIAS 78; BP_DIAS 99
[2021-08-30 07:15] VITALS: BP 71/40
[2021-08-30] MEDS ORDERED: SODIUM CHLORIDE 0.9% 1,000 ML IV ONE ×2 (07:45→17:00)
[2021-08-30 08:50] VITALS: BP 84/56
[2021-08-30] MEDS ORDERED: SODIUM CHLORIDE 0.9% 250 ML IV ONE ×2 (09:26→12:35)
[2021-08-30] MEDS ORDERED: BISACODYL 10 MG RECTAL RECTAL SUPPOSITORY PR PRN (09:30)
[2021-08-30] MEDS ORDERED: ONDANSETRON HCL 4 MG/2 ML VIAL IVP PRN (09:30)
[2021-08-30] MEDS ORDERED: ACETAMINOPHEN 325 MG TABLET PO PRN (09:30)
[2021-08-30] MEDS ORDERED: MAGNESIUM HYDROXIDE SUSPENSION 30 ML UDCUP PO PRN (09:30)
[2021-08-30] MEDS ORDERED: PHENYLEPHRINE 200 MG/D5%-WATER 250 ML IV PRN (09:45)
[2021-08-30 12:00] VITALS: BP 94/56
[2021-08-30] MEDS ORDERED: DAPTOMYCIN 500 MG in SODIUM CHLORIDE 0.9% 50 ML IV SCH (12:00)
[2021-08-30] MEDS: CLINDAMYCIN 900 MG/D5% WATER 50 ML IV SCH ×2 (12:32→18:16)
[2021-08-30] MEDS ORDERED: PNEUMOCOCCAL VACCINE POLYVALENT 0.5 ML VIAL [PPSV23] IM. ONE (12:45)
[2021-08-30] MEDS: MORPHINE SULFATE 2 MG/ML SYRINGE IVP PRN ×2 (15:23→23:08)
[2021-08-30 16:00] VITALS: BP 108/78
[2021-08-30] MEDS: HEPARIN SODIUM,PORCINE 5,000 UNITS/ML VIAL SQ SCH ×2 (17:20→23:08)
[2021-08-30] MEDS ORDERED: DEXTROSE 5%-0.9% SODIUM CHL 1,000 ML IV SCH ×2 (17:30)
[2021-08-30] MEDS: HYDROCODONE/ACETAMINOPHEN 5-325 MG TABLET PO PRN (18:17)
[2021-08-30] MEDS: DOCUSATE SODIUM 100 MG CAPSULE PO SCH (20:38)
[2021-08-30 23:40] LABS: SODIUM,URINE RANDOM 25 mmol/l (20-110); UREA NITROGEN,URINE RANDOM 906 mg/dL (350-1000)
[2021-08-31] MEDS: HYDROCODONE/ACETAMINOPHEN 5-325 MG TABLET PO PRN ×4 (00:14→22:38)
[2021-08-31] MEDS: CLINDAMYCIN 900 MG/D5% WATER 50 ML IV SCH ×3 (02:17→18:19)
[2021-08-31 04:00] VITALS: BP 114/79
[2021-08-31 05:36] LABS: BASOPHILS % (AUTO) 0.6 % (0.0-2.0); EOSINOPHILS % (AUTO) 2.1 % (1.0-6.0); HEMATOCRIT 46.8 % (41-53); HEMOGLOBIN 15.6 g/dL (13.5-17.5); LYMPHOCYTES # (AUTO) 1.4 K/uL (1.0-4.8); LYMPHOCYTES % (AUTO) 9.3 % (22.0-44.0); MEAN CORPUSCULAR HEMOGLOBIN 30.4 pg (26.0-34.0); MEAN CORPUSCULAR HGB CONC 33.4 G/dL (31.0-37.0); MEAN CORPUSCULAR VOLUME 91 fL (80-100); MONOCYTES # (AUTO) 1.2 K/uL (0.1-1.0); MONOCYTES % (AUTO) 7.6 % (2.0-9.0); NEUTROPHILS # (AUTO) 12.2 K/uL (1.8-7.7); NEUTROPHILS % (AUTO) 80.4 % (40.0-70.0); PLATELET COUNT (AUTO) 196 K/uL (150-450); RED BLOOD CELL COUNT(AUTO) 5.14 MIL/uL (4.50-5.90); RED CELL DISTRIBUTION WIDTH 15.4 % (11.5-14.5)
[2021-08-31 05:55] LABS: C-REACTIVE PROTEIN QUANT 12.18 mg/dL (0.00-0.30); CALCIUM, TOTAL 8.5 mg/dL (8.8-10.5); CREATININE 1.54 mg/dL (0.60-1.30); MAGNESIUM 2.6 mg/dL (1.80-2.40); PHOSPHORUS 4.7 mg/dL (2.5-4.9); POTASSIUM 3.9 mmol/L (3.5-5.1); URIC ACID 10.1 mg/dL (2.6-7.2)
[2021-08-31 08:00] VITALS: BP 126/53
[2021-08-31] MEDS: DOCUSATE SODIUM 100 MG CAPSULE PO SCH ×2 (08:00→21:00)
[2021-08-31] MEDS: PANTOPRAZOLE SODIUM 40 MG DR TABLET PO SCH (08:00)
[2021-08-31] MEDS: HEPARIN SODIUM,PORCINE 5,000 UNITS/ML VIAL SQ SCH ×3 (08:01→22:35)
[2021-08-31 12:00] VITALS: BP 101/59
[2021-08-31] MEDS ORDERED: DAPTOMYCIN 500 MG in SODIUM CHLORIDE 0.9% 50 ML IV SCH (14:00)
[2021-08-31 15:18] VITALS: BP 105/68
[2021-08-31] MEDS ORDERED: SODIUM CHLORIDE 0.9% 250 ML IV ONE (18:08)
[2021-08-31] MEDS: MORPHINE SULFATE 2 MG/ML SYRINGE IVP PRN (18:29)
[2021-08-31 20:26] VITALS: BP 113/74
[2021-09-01] VITALS (7 sets, daily range): BP systolic 98–124; BP diastolic 64–90
[2021-09-01] MEDS: HYDROCODONE/ACETAMINOPHEN 5-325 MG TABLET PO PRN ×4 (02:40→22:43)
[2021-09-01] MEDS: CLINDAMYCIN 900 MG/D5% WATER 50 ML IV SCH ×3 (02:43→18:40)
[2021-09-01 05:56] LABS: BASOPHILS % (AUTO) 0.9 % (0.0-2.0); EOSINOPHILS % (AUTO) 1.7 % (1.0-6.0); HEMATOCRIT 45.9 % (41-53); HEMOGLOBIN 15.4 g/dL (13.5-17.5); LYMPHOCYTES # (AUTO) 1.5 K/uL (1.0-4.8); LYMPHOCYTES % (AUTO) 11.1 % (22.0-44.0); MEAN CORPUSCULAR HEMOGLOBIN 30.4 pg (26.0-34.0); MEAN CORPUSCULAR HGB CONC 33.6 G/dL (31.0-37.0); MEAN CORPUSCULAR VOLUME 91 fL (80-100); MONOCYTES % (AUTO) 7.5 % (2.0-9.0); NEUTROPHILS # (AUTO) 10.4 K/uL (1.8-7.7); NEUTROPHILS % (AUTO) 78.8 % (40.0-70.0); PLATELET COUNT (AUTO) 196 K/uL (150-450); RED BLOOD CELL COUNT(AUTO) 5.07 MIL/uL (4.50-5.90); RED CELL DISTRIBUTION WIDTH 15.5 % (11.5-14.5)
[2021-09-01 06:15] LABS: ANION GAP 10 mmol/L (8-16); C-REACTIVE PROTEIN QUANT 8.07 mg/dL (0.00-0.30); CALCIUM, TOTAL 8.4 mg/dL (8.8-10.5); CARBON DIOXIDE 25 mmol/L (22-29); CHLORIDE 98 mmol/L (98-107); CREATININE 1.16 mg/dL (0.60-1.30); GLOMERULAR FILTR. RATE CALC > 60 mL/min (>60); GLUCOSE,RANDOM 131 mg/dL (70-110); PHOSPHORUS 3.3 mg/dL (2.5-4.9); POTASSIUM 3.9 mmol/L (3.5-5.1); SODIUM SERUM 133 mmol/L (136-145); UREA NITROGEN, BLOOD 56 mg/dL (7-18)
[2021-09-01] MEDS: PANTOPRAZOLE SODIUM 40 MG DR TABLET PO SCH (09:00)
[2021-09-01] MEDS: HEPARIN SODIUM,PORCINE 5,000 UNITS/ML VIAL SQ SCH ×2 (09:56→15:34)
[2021-09-01] MEDS: DOCUSATE SODIUM 100 MG CAPSULE PO SCH ×2 (09:56→21:00)
[2021-09-01 14:00] LABS: INR 1.3 (0.9-1.1); PROTHROMBIN TIME 13.3 SEC (9.4-11.6)
[2021-09-01] MEDS: DAPTOMYCIN 600 MG in SODIUM CHLORIDE 0.9% 50 ML IV SCH (15:31)
[2021-09-01] MEDS: ALLOPURINOL 100 MG TABLET PO SCH ×2 (15:31→21:05)
[2021-09-01] MEDS: ZOLPIDEM TARTRATE 5 MG TABLET PO PRN (21:05)
[2021-09-02] MEDS: MORPHINE SULFATE 2 MG/ML SYRINGE IVP PRN ×3 (00:13→19:40)
[2021-09-02] MEDS: HEPARIN SODIUM,PORCINE 5,000 UNITS/ML VIAL SQ SCH ×4 (00:30→23:12)
[2021-09-02] MEDS: HYDROCODONE/ACETAMINOPHEN 5-325 MG TABLET PO PRN ×2 (02:27→05:59)
[2021-09-02] MEDS: CLINDAMYCIN 900 MG/D5% WATER 50 ML IV SCH ×2 (02:28→10:38)
[2021-09-02 06:15] VITALS: BP 102/68
[2021-09-02 07:06] LABS: HEMATOCRIT 43.2 % (41-53); HEMOGLOBIN 14.5 g/dL (13.5-17.5); MEAN CORPUSCULAR HEMOGLOBIN 30.6 pg (26.0-34.0); MEAN CORPUSCULAR HGB CONC 33.6 G/dL (31.0-37.0); MEAN CORPUSCULAR VOLUME 91 fL (80-100); PLATELET COUNT (AUTO) 184 K/uL (150-450); RED BLOOD CELL COUNT(AUTO) 4.74 MIL/uL (4.50-5.90); RED CELL DISTRIBUTION WIDTH 15.4 % (11.5-14.5)
[2021-09-02 07:27] LABS: ANION GAP 11 mmol/L (8-16); CALCIUM, TOTAL 8.3 mg/dL (8.8-10.5); CARBON DIOXIDE 24 mmol/L (22-29); CHLORIDE 97 mmol/L (98-107); CREATININE 0.97 mg/dL (0.60-1.30); GLOMERULAR FILTR. RATE CALC > 60 mL/min (>60); GLUCOSE,RANDOM 111 mg/dL (70-110); PHOSPHORUS 3.6 mg/dL (2.5-4.9); POTASSIUM 3.7 mmol/L (3.5-5.1); SODIUM SERUM 132 mmol/L (136-145); UREA NITROGEN, BLOOD 35 mg/dL (7-18)
[2021-09-02 08:11] VITALS: BP 99/71
[2021-09-02] MEDS: PANTOPRAZOLE SODIUM 40 MG DR TABLET PO SCH (08:23)
[2021-09-02] MEDS: ALLOPURINOL 100 MG TABLET PO SCH ×2 (08:23→20:07)
[2021-09-02] MEDS: DOCUSATE SODIUM 100 MG CAPSULE PO SCH ×2 (08:23→20:14)
[2021-09-02 09:15] LABS: BAND NEUTROPHILS % (MANUAL) 3 % (0-5); EOSINOPHILS % (MANUAL) 2 % (1-6); LYMPHOCYTES % (MANUAL) 12 % (22-44); METAMYELOCYTES % 2 % (0-0); MONOCYTES % (MANUAL) 6 % (2-9); SEGMENTED NEUTROPHILS % 75 % (40-70)
[2021-09-02 12:19] VITALS: BP 106/72
[2021-09-02] MEDS: DAPTOMYCIN 600 MG in SODIUM CHLORIDE 0.9% 50 ML IV SCH (14:33)
[2021-09-02 16:01] VITALS: BP 103/63
[2021-09-02 19:17] VITALS: BP 107/68
[2021-09-02] MEDS: ZOLPIDEM TARTRATE 5 MG TABLET PO PRN (20:09)
[2021-09-02 23:15] VITALS: BP 115/79
[2021-09-03] MEDS: HYDROCODONE/ACETAMINOPHEN 5-325 MG TABLET PO PRN ×2 (01:44→09:00)
[2021-09-03 05:46] VITALS: BP 109/71
[2021-09-03 07:34] VITALS: BP 111/71
[2021-09-03 07:35] LABS: HEMATOCRIT 40.2 % (41-53); HEMOGLOBIN 13.8 g/dL (13.5-17.5); MEAN CORPUSCULAR HEMOGLOBIN 30.7 pg (26.0-34.0); MEAN CORPUSCULAR HGB CONC 34.4 G/dL (31.0-37.0); MEAN CORPUSCULAR VOLUME 89 fL (80-100); PLATELET COUNT (AUTO) 188 K/uL (150-450); RED CELL DISTRIBUTION WIDTH 15.7 % (11.5-14.5)
[2021-09-03 07:53] LABS: ALANINE AMINOTRANSFERASE 15 U/L (12-78); ALBUMIN 2.2 g/dL (3.4-5.0); ALKALINE PHOSPHATASE 401 U/L (46-116); ANION GAP 9 mmol/L (8-16); ASPARTATE AMINOTRANSFERASE 20 U/L (15-37); BILIRUBIN,TOTAL 2.9 mg/dL (0.1-1.0); CALCIUM, TOTAL 8.3 mg/dL (8.8-10.5); CARBON DIOXIDE 22 mmol/L (22-29); CHLORIDE 97 mmol/L (98-107); CREATININE 0.85 mg/dL (0.60-1.30); GLOMERULAR FILTR. RATE CALC > 60 mL/min (>60); GLUCOSE,RANDOM 98 mg/dL (70-110); PHOSPHORUS 4.1 mg/dL (2.5-4.9); POTASSIUM 3.9 mmol/L (3.5-5.1); SODIUM SERUM 128 mmol/L (136-145); TOTAL PROTEIN, SERUM 7.5 g/dL (6.4-8.2); UREA NITROGEN, BLOOD 25 mg/dL (7-18)
[2021-09-03] MEDS: HEPARIN SODIUM,PORCINE 5,000 UNITS/ML VIAL SQ SCH ×3 (08:58→20:39)
[2021-09-03] MEDS: ALLOPURINOL 100 MG TABLET PO SCH ×2 (08:58→20:44)
[2021-09-03] MEDS: DOCUSATE SODIUM 100 MG CAPSULE PO SCH ×2 (09:00→20:44)
[2021-09-03] MEDS: PANTOPRAZOLE SODIUM 40 MG DR TABLET PO SCH (09:00)
[2021-09-03 10:17] LABS: BAND NEUTROPHILS % (MANUAL) 0 % (0-5)
[2021-09-03 10:19] LABS: LYMPHOCYTES % (MANUAL) 17 % (22-44); METAMYELOCYTES % 3 % (0-0); MONOCYTES % (MANUAL) 4 % (2-9); SEGMENTED NEUTROPHILS % 76 % (40-70)
[2021-09-03] MEDS: MORPHINE SULFATE 2 MG/ML SYRINGE IVP PRN (11:00)
[2021-09-03 11:17] VITALS: BP 115/68
[2021-09-03] MEDS: INDOMETHACIN 50 MG CAPSULE PO PRN ×2 (14:03→22:59)
[2021-09-03] MEDS ORDERED: SODIUM CHLORIDE 0.9% 500 ML IV ONE (14:46)
[2021-09-03] MEDS: DAPTOMYCIN 600 MG in SODIUM CHLORIDE 0.9% 50 ML IV SCH (14:48)
[2021-09-03 15:02] VITALS: BP 119/79
[2021-09-03] MEDS: CEFTAROLINE 600 MG/D5W 250 ML IV SCH ×2 (16:47→22:59)
[2021-09-03 20:25] VITALS: BP 108/63
[2021-09-03] MEDS: ZOLPIDEM TARTRATE 5 MG TABLET PO PRN (22:58)
[2021-09-04] VITALS (7 sets, daily range): BP systolic 96–107; BP diastolic 56–74
[2021-09-04] MEDS: HYDROCODONE/ACETAMINOPHEN 5-325 MG TABLET PO PRN ×3 (01:58→20:36)
[2021-09-04] MEDS: HEPARIN SODIUM,PORCINE 5,000 UNITS/ML VIAL SQ SCH ×3 (08:00→20:36)
[2021-09-04] MEDS: CEFTAROLINE 600 MG/D5W 250 ML IV SCH ×2 (08:00→16:50)
[2021-09-04 08:20] LABS: ANION GAP 9 mmol/L (8-16); C-REACTIVE PROTEIN QUANT 5.18 mg/dL (0.00-0.30); CALCIUM, TOTAL 8.2 mg/dL (8.8-10.5); CARBON DIOXIDE 22 mmol/L (22-29); CHLORIDE 96 mmol/L (98-107); CREATININE 1.23 mg/dL (0.60-1.30); GLOMERULAR FILTR. RATE CALC > 60 mL/min (>60); GLUCOSE,RANDOM 97 mg/dL (70-110); POTASSIUM 4.2 mmol/L (3.5-5.1); SODIUM SERUM 127 mmol/L (136-145); UREA NITROGEN, BLOOD 33 mg/dL (7-18)
[2021-09-04] MEDS: PANTOPRAZOLE SODIUM 40 MG DR TABLET PO SCH (10:09)
[2021-09-04] MEDS: DOCUSATE SODIUM 100 MG CAPSULE PO SCH ×2 (10:09→20:35)
[2021-09-04] MEDS: ALLOPURINOL 100 MG TABLET PO SCH ×2 (10:11→20:35)
[2021-09-04] MEDS: DAPTOMYCIN 600 MG in SODIUM CHLORIDE 0.9% 50 ML IV SCH (15:16)
[2021-09-04] MEDS: ZOLPIDEM TARTRATE 5 MG TABLET PO PRN (20:38)
[2021-09-04] MEDS: MORPHINE SULFATE 2 MG/ML SYRINGE IVP PRN (21:25)
[2021-09-05] MEDS: CEFTAROLINE 600 MG/D5W 250 ML IV SCH ×4 (01:08→23:41)
[2021-09-05 03:06] VITALS: BP 119/81
[2021-09-05] MEDS: MORPHINE SULFATE 2 MG/ML SYRINGE IVP PRN ×2 (04:17→18:43)
[2021-09-05] MEDS: HYDROCODONE/ACETAMINOPHEN 5-325 MG TABLET PO PRN ×3 (05:22→23:40)
[2021-09-05] MEDS: INDOMETHACIN 50 MG CAPSULE PO PRN (05:23)
[2021-09-05 07:26] LABS: EOSINOPHILS % (AUTO) 1.2 % (1.0-6.0); HEMOGLOBIN 14.1 g/dL (13.5-17.5); LYMPHOCYTES # (AUTO) 1.2 K/uL (1.0-4.8); LYMPHOCYTES % (AUTO) 9.7 % (22.0-44.0); MEAN CORPUSCULAR HEMOGLOBIN 30.3 pg (26.0-34.0); MEAN CORPUSCULAR HGB CONC 33.5 G/dL (31.0-37.0); MEAN CORPUSCULAR VOLUME 90 fL (80-100); MONOCYTES % (AUTO) 7.7 % (2.0-9.0); NEUTROPHILS # (AUTO) 10.3 K/uL (1.8-7.7); NEUTROPHILS % (AUTO) 80.4 % (40.0-70.0); PLATELET COUNT (AUTO) 265 K/uL (150-450); RED BLOOD CELL COUNT(AUTO) 4.65 MIL/uL (4.50-5.90); RED CELL DISTRIBUTION WIDTH 15.6 % (11.5-14.5)
[2021-09-05 07:36] LABS: ANION GAP 10 mmol/L (8-16); CALCIUM, TOTAL 8.4 mg/dL (8.8-10.5); CARBON DIOXIDE 22 mmol/L (22-29); CHLORIDE 97 mmol/L (98-107); CREATININE 1.03 mg/dL (0.60-1.30); GLOMERULAR FILTR. RATE CALC > 60 mL/min (>60); GLUCOSE,RANDOM 95 mg/dL (70-110); POTASSIUM 4.4 mmol/L (3.5-5.1); SODIUM SERUM 129 mmol/L (136-145); UREA NITROGEN, BLOOD 30 mg/dL (7-18)
[2021-09-05 07:42] VITALS: BP 124/62
[2021-09-05] MEDS ORDERED: VANCOMYCIN HCL 1.5 GM in DEXTROSE 5%-WATER 250 ML IV ONE (08:00)
[2021-09-05] MEDS: HEPARIN SODIUM,PORCINE 5,000 UNITS/ML VIAL SQ SCH ×3 (08:33→23:41)
[2021-09-05] MEDS: PANTOPRAZOLE SODIUM 40 MG DR TABLET PO SCH (08:33)
[2021-09-05] MEDS: ALLOPURINOL 100 MG TABLET PO SCH ×2 (08:33→20:35)
[2021-09-05] MEDS: DOCUSATE SODIUM 100 MG CAPSULE PO SCH ×2 (08:34→20:36)
[2021-09-05 11:17] VITALS: BP 106/71
[2021-09-05 15:14] VITALS: BP 107/72
[2021-09-05] MEDS ORDERED: LIDOCAINE/PF 1% 5 ML VIAL ONE (17:08)
[2021-09-05] MEDS ORDERED: VANCOMYCIN 1GM/WATER(PEG/NADA) 200 ML IV SCH (20:00)
[2021-09-05 20:24] VITALS: BP 103/76
[2021-09-05] MEDS: SODIUM CHLORIDE 1 GM TABLET PO SCH (20:35)
[2021-09-05] MEDS: VANCOMYCIN HCL 1.25 GM in DEXTROSE 5%-WATER 250 ML IV SCH (20:35)
[2021-09-05 20:46] LABS: SPECIMENTYPE,BODY FLUID SYNOVIAL
[2021-09-05 23:50] LABS: APPEARANCE,SPUN,BODY FLUID HAZY (CLEAR); APPEARANCE,UNSPUN,BODY FLUID TURBID (CLEAR); BASOPHILS,BODY FLUID 0 %; COLOR,BODY FLUID RED (LT YELLOW); EOSINOPHILS,BF (ANAL) 0 %; LYMPHOCYTES,BODY FLUID 4 %; MONOCYTES,BODY FLUID 3 %; NEUTROPHILS,BODY FLUID 93 %; TOTAL VOLUME,BODY FLUID 40 mL; WBC, BODY FLUID 67875 /cu. mm.
[2021-09-06 00:01] LABS: CRYSTALS, SYNOVIAL FLUID None Seen (None Seen)
[2021-09-06 00:19] VITALS: BP 107/79
[2021-09-06 05:04] VITALS: BP 103/72
[2021-09-06] MEDS: HYDROCODONE/ACETAMINOPHEN 5-325 MG TABLET PO PRN ×3 (05:27→15:25)
[2021-09-06 07:56] VITALS: BP 94/72
[2021-09-06] MEDS: DOCUSATE SODIUM 100 MG CAPSULE PO SCH ×2 (09:00→21:05)
[2021-09-06 09:28] LABS: ANION GAP 13 mmol/L (8-16); CALCIUM, TOTAL 8.4 mg/dL (8.8-10.5); CARBON DIOXIDE 23 mmol/L (22-29); CHLORIDE 97 mmol/L (98-107); CREATININE 1.06 mg/dL (0.60-1.30); GLOMERULAR FILTR. RATE CALC > 60 mL/min (>60); GLUCOSE,RANDOM 85 mg/dL (70-110); POTASSIUM 4.9 mmol/L (3.5-5.1); SODIUM SERUM 133 mmol/L (136-145); UREA NITROGEN, BLOOD 26 mg/dL (7-18)
[2021-09-06] MEDS: CEFTAROLINE 600 MG/D5W 250 ML IV SCH ×3 (09:50→23:37)
[2021-09-06] MEDS: HEPARIN SODIUM,PORCINE 5,000 UNITS/ML VIAL SQ SCH ×3 (10:21→23:37)
[2021-09-06] MEDS: SODIUM CHLORIDE 1 GM TABLET PO SCH ×2 (10:22→21:05)
[2021-09-06] MEDS: ALLOPURINOL 100 MG TABLET PO SCH ×2 (10:22→21:04)
[2021-09-06] MEDS: PANTOPRAZOLE SODIUM 40 MG DR TABLET PO SCH (10:22)
[2021-09-06] MEDS: VANCOMYCIN HCL 1.25 GM in DEXTROSE 5%-WATER 250 ML IV SCH ×2 (11:10→21:04)
[2021-09-06 11:13] VITALS: BP 104/69
[2021-09-06 20:21] VITALS: BP 114/82
[2021-09-06] MEDS: MORPHINE SULFATE 2 MG/ML SYRINGE IVP PRN (23:37)
[2021-09-07] VITALS (7 sets, daily range): BP systolic 100–120; BP diastolic 67–84
[2021-09-07] MEDS: ZOLPIDEM TARTRATE 5 MG TABLET PO PRN (01:23)
[2021-09-07] MEDS ORDERED: MORPHINE SULFATE 2 MG/ML SYRINGE IVP ONE (03:00)
[2021-09-07] MEDS: HYDROCODONE/ACETAMINOPHEN 5-325 MG TABLET PO PRN ×4 (04:40→20:04)
[2021-09-07] MEDS: CEFTAROLINE 600 MG/D5W 250 ML IV SCH ×2 (07:34→16:41)
[2021-09-07 07:54] LABS: ANION GAP 8 mmol/L (8-16); CALCIUM, TOTAL 8.5 mg/dL (8.8-10.5); CARBON DIOXIDE 21 mmol/L (22-29); CHLORIDE 98 mmol/L (98-107); CREATININE 0.99 mg/dL (0.60-1.30); GLOMERULAR FILTR. RATE CALC > 60 mL/min (>60); GLUCOSE,RANDOM 82 mg/dL (70-110); POTASSIUM 4.6 mmol/L (3.5-5.1); SODIUM SERUM 127 mmol/L (136-145); UREA NITROGEN, BLOOD 21 mg/dL (7-18); VANCOMYCIN,RANDOM 24.6 mcg/mL (25.0-50.0)
[2021-09-07] MEDS: VANCOMYCIN HCL 1.25 GM in DEXTROSE 5%-WATER 250 ML IV SCH ×2 (08:49→20:07)
[2021-09-07] MEDS: PANTOPRAZOLE SODIUM 40 MG DR TABLET PO SCH (08:50)
[2021-09-07] MEDS: HEPARIN SODIUM,PORCINE 5,000 UNITS/ML VIAL SQ SCH ×2 (08:50→15:38)
[2021-09-07] MEDS: SODIUM CHLORIDE 1 GM TABLET PO SCH ×2 (08:50→20:04)
[2021-09-07] MEDS: ALLOPURINOL 100 MG TABLET PO SCH ×2 (08:50→20:04)
[2021-09-07] MEDS: DOCUSATE SODIUM 100 MG CAPSULE PO SCH ×2 (08:50→21:00)
[2021-09-07] MEDS: MORPHINE SULFATE 2 MG/ML SYRINGE IVP PRN ×2 (16:41→22:13)
[2021-09-08] MEDS: CEFTAROLINE 600 MG/D5W 250 ML IV SCH ×3 (00:42→16:22)
[2021-09-08] MEDS: HEPARIN SODIUM,PORCINE 5,000 UNITS/ML VIAL SQ SCH ×3 (00:43→16:22)
[2021-09-08] MEDS: MORPHINE SULFATE 2 MG/ML SYRINGE IVP PRN ×4 (02:31→20:55)
[2021-09-08] MEDS: HYDROCODONE/ACETAMINOPHEN 5-325 MG TABLET PO PRN ×2 (05:16→09:29)
[2021-09-08 05:30] VITALS: BP 116/77
[2021-09-08 07:30] VITALS: BP 114/72
[2021-09-08 07:30] LABS: ANION GAP 10 mmol/L (8-16); CALCIUM, TOTAL 8.8 mg/dL (8.8-10.5); CARBON DIOXIDE 20 mmol/L (22-29); CHLORIDE 99 mmol/L (98-107); CREATININE 1.03 mg/dL (0.60-1.30); GLOMERULAR FILTR. RATE CALC > 60 mL/min (>60); GLUCOSE,RANDOM 105 mg/dL (70-110); POTASSIUM 4.7 mmol/L (3.5-5.1); SODIUM SERUM 129 mmol/L (136-145); UREA NITROGEN, BLOOD 19 mg/dL (7-18)
[2021-09-08] MEDS: PANTOPRAZOLE SODIUM 40 MG DR TABLET PO SCH (08:29)
[2021-09-08] MEDS: SODIUM CHLORIDE 1 GM TABLET PO SCH ×2 (08:29→20:53)
[2021-09-08] MEDS: ALLOPURINOL 100 MG TABLET PO SCH ×2 (08:29→20:54)
[2021-09-08] MEDS: DOCUSATE SODIUM 100 MG CAPSULE PO SCH ×2 (09:00→20:55)
[2021-09-08] MEDS: VANCOMYCIN HCL 1.25 GM in DEXTROSE 5%-WATER 250 ML IV SCH ×2 (10:10→20:53)
[2021-09-08 11:40] VITALS: BP 116/84
[2021-09-08 15:56] VITALS: BP 123/83
[2021-09-08 19:57] VITALS: BP 115/77
[2021-09-08] MEDS ORDERED: SODIUM CHLORIDE 0.9% 250 ML IV ONE (21:05)
[2021-09-08 23:15] VITALS: BP 139/91
[2021-09-09] MEDS: HEPARIN SODIUM,PORCINE 5,000 UNITS/ML VIAL SQ SCH ×3 (00:24→15:59)
[2021-09-09] MEDS: CEFTAROLINE 600 MG/D5W 250 ML IV SCH ×3 (00:24→16:00)
[2021-09-09] MEDS: HYDROCODONE/ACETAMINOPHEN 5-325 MG TABLET PO PRN ×3 (00:24→22:59)
[2021-09-09] MEDS: MORPHINE SULFATE 2 MG/ML SYRINGE IVP PRN ×3 (01:07→13:10)
[2021-09-09] MEDS: INDOMETHACIN 50 MG CAPSULE PO PRN ×2 (03:06→17:37)
[2021-09-09 03:26] VITALS: BP 119/81
[2021-09-09 07:25] VITALS: BP 119/76
[2021-09-09 07:28] LABS: ANION GAP 9 mmol/L (8-16); CALCIUM, TOTAL 9.1 mg/dL (8.8-10.5); CARBON DIOXIDE 21 mmol/L (22-29); CHLORIDE 100 mmol/L (98-107); CREATININE 0.94 mg/dL (0.60-1.30); GLOMERULAR FILTR. RATE CALC > 60 mL/min (>60); GLUCOSE,RANDOM 97 mg/dL (70-110); POTASSIUM 4.6 mmol/L (3.5-5.1); SODIUM SERUM 130 mmol/L (136-145); UREA NITROGEN, BLOOD 18 mg/dL (7-18)
[2021-09-09 07:51] LABS: VANCOMYCIN,RANDOM 25.3 mcg/mL (25.0-50.0)
[2021-09-09] MEDS: PANTOPRAZOLE SODIUM 40 MG DR TABLET PO SCH (08:12)
[2021-09-09] MEDS: SODIUM CHLORIDE 1 GM TABLET PO SCH ×2 (08:12→21:15)
[2021-09-09] MEDS: DOCUSATE SODIUM 100 MG CAPSULE PO SCH ×2 (08:12→21:00)
[2021-09-09] MEDS: ALLOPURINOL 100 MG TABLET PO SCH ×2 (08:12→21:15)
[2021-09-09] MEDS: VANCOMYCIN HCL 1.25 GM in DEXTROSE 5%-WATER 250 ML IV SCH (10:15)
[2021-09-09 11:38] VITALS: BP 111/74
[2021-09-09 15:41] VITALS: BP 114/81
[2021-09-09 20:00] VITALS: BP 109/86
[2021-09-09] MEDS: VANCOMYCIN 1GM/WATER(PEG/NADA) 200 ML IV SCH (21:20)
[2021-09-10] VITALS (7 sets, daily range): BP systolic 98–131; BP diastolic 64–90
[2021-09-10] MEDS ORDERED: SODIUM CHLORIDE 0.9% 500 ML IV ONE (00:52)
[2021-09-10] MEDS: CEFTAROLINE 600 MG/D5W 250 ML IV SCH ×3 (00:59→16:10)
[2021-09-10] MEDS: INDOMETHACIN 50 MG CAPSULE PO PRN (02:32)
[2021-09-10] MEDS: HYDROCODONE/ACETAMINOPHEN 5-325 MG TABLET PO PRN ×3 (07:07→21:41)
[2021-09-10 07:19] LABS: CALCIUM, TOTAL 8.6 mg/dL (8.8-10.5); CREATININE 1.25 mg/dL (0.60-1.30); POTASSIUM 4.6 mmol/L (3.5-5.1)
[2021-09-10 07:22] LABS: PHOSPHORUS 5.7 mg/dL (2.5-4.9)
[2021-09-10] MEDS: HEPARIN SODIUM,PORCINE 5,000 UNITS/ML VIAL SQ SCH ×4 (08:43→23:17)
[2021-09-10] MEDS: ALLOPURINOL 100 MG TABLET PO SCH ×2 (08:44→21:43)
[2021-09-10] MEDS: SODIUM CHLORIDE 1 GM TABLET PO SCH ×3 (08:44→21:41)
[2021-09-10] MEDS: PANTOPRAZOLE SODIUM 40 MG DR TABLET PO SCH (08:44)
[2021-09-10] MEDS: DOCUSATE SODIUM 100 MG CAPSULE PO SCH ×2 (08:45→21:40)
[2021-09-10] MEDS: MORPHINE SULFATE 2 MG/ML SYRINGE IVP PRN ×4 (08:46→23:17)
[2021-09-10] MEDS: VANCOMYCIN 1GM/WATER(PEG/NADA) 200 ML IV SCH ×2 (10:34→21:40)
[2021-09-11] MEDS: ZOLPIDEM TARTRATE 5 MG TABLET PO PRN (01:37)
[2021-09-11] MEDS: HYDROCODONE/ACETAMINOPHEN 5-325 MG TABLET PO PRN ×3 (01:37→20:26)
[2021-09-11] MEDS: CEFTAROLINE 600 MG/D5W 250 ML IV SCH ×4 (01:38→23:46)
[2021-09-11] MEDS: MORPHINE SULFATE 2 MG/ML SYRINGE IVP PRN ×4 (03:30→21:06)
[2021-09-11 04:15] VITALS: BP 137/90
[2021-09-11 07:20] VITALS: BP 107/70
[2021-09-11 07:40] LABS: CALCIUM, TOTAL 8.8 mg/dL (8.8-10.5); CREATININE 1.28 mg/dL (0.60-1.30); POTASSIUM 4.6 mmol/L (3.5-5.1); VANCOMYCIN,RANDOM 32.7 mcg/mL (25.0-50.0)
[2021-09-11] MEDS: SODIUM CHLORIDE 1 GM TABLET PO SCH ×3 (08:35→20:15)
[2021-09-11] MEDS: PANTOPRAZOLE SODIUM 40 MG DR TABLET PO SCH (08:35)
[2021-09-11] MEDS: ALLOPURINOL 100 MG TABLET PO SCH ×2 (08:35→20:15)
[2021-09-11] MEDS: HEPARIN SODIUM,PORCINE 5,000 UNITS/ML VIAL SQ SCH ×3 (08:36→23:46)
[2021-09-11] MEDS: DOCUSATE SODIUM 100 MG CAPSULE PO SCH ×2 (08:36→20:19)
[2021-09-11] MEDS ORDERED: VANCOMYCIN HCL 750 MG in DEXTROSE 5%-WATER 250 ML IV ONE (09:00)
[2021-09-11] MEDS ORDERED: ASPIRIN 81 MG CHEWABLE TABLET PO ONE (09:45)
[2021-09-11] MEDS ORDERED: NITROGLYCERIN 2% (1 GM=INCH) PACKET TP ONE (09:45)
[2021-09-11 11:03] VITALS: BP 109/76
[2021-09-11 15:15] VITALS: BP 116/63
[2021-09-11] MEDS: VANCOMYCIN 1GM/WATER(PEG/NADA) 200 ML IV SCH (20:00)
[2021-09-11 20:19] VITALS: BP 122/73
[2021-09-11] MEDS: VANCOMYCIN HCL 750 MG in DEXTROSE 5%-WATER 250 ML IV SCH (20:30)
[2021-09-12] VITALS (8 sets, daily range): BP systolic 117–132; BP diastolic 82–95
[2021-09-12] MEDS: HYDROCODONE/ACETAMINOPHEN 5-325 MG TABLET PO PRN ×2 (01:12→22:38)
[2021-09-12] MEDS: MORPHINE SULFATE 2 MG/ML SYRINGE IVP PRN ×4 (02:20→21:26)
[2021-09-12 06:15] LABS: BASOPHILS % (AUTO) 3.6 % (0.0-2.0); EOSINOPHILS % (AUTO) 0.6 % (1.0-6.0); HEMATOCRIT 40.7 % (41-53); HEMOGLOBIN 13.6 g/dL (13.5-17.5); LYMPHOCYTES # (AUTO) 1.1 K/uL (1.0-4.8); MEAN CORPUSCULAR HEMOGLOBIN 30.6 pg (26.0-34.0); MEAN CORPUSCULAR HGB CONC 33.5 G/dL (31.0-37.0); MEAN CORPUSCULAR VOLUME 91 fL (80-100); MONOCYTES # (AUTO) 0.7 K/uL (0.1-1.0); MONOCYTES % (AUTO) 10.2 % (2.0-9.0); NEUTROPHILS # (AUTO) 4.5 K/uL (1.8-7.7); NEUTROPHILS % (AUTO) 68.6 % (40.0-70.0); PLATELET COUNT (AUTO) 320 K/uL (150-450); RED BLOOD CELL COUNT(AUTO) 4.45 MIL/uL (4.50-5.90); RED CELL DISTRIBUTION WIDTH 16.5 % (11.5-14.5)
[2021-09-12 06:40] LABS: ALANINE AMINOTRANSFERASE 16 U/L (12-78); ALBUMIN 2.4 g/dL (3.4-5.0); ALKALINE PHOSPHATASE 372 U/L (46-116); ANION GAP 9 mmol/L (8-16); ASPARTATE AMINOTRANSFERASE 21 U/L (15-37); BILIRUBIN,TOTAL 1.6 mg/dL (0.1-1.0); CARBON DIOXIDE 20 mmol/L (22-29); CHLORIDE 99 mmol/L (98-107); CREATININE 1.12 mg/dL (0.60-1.30); GLOMERULAR FILTR. RATE CALC > 60 mL/min (>60); GLUCOSE,RANDOM 84 mg/dL (70-110); PHOSPHORUS 4.6 mg/dL (2.5-4.9); POTASSIUM 4.4 mmol/L (3.5-5.1); SODIUM SERUM 128 mmol/L (136-145); TOTAL PROTEIN, SERUM 8.9 g/dL (6.4-8.2); UREA NITROGEN, BLOOD 21 mg/dL (7-18)
[2021-09-12] MEDS: PANTOPRAZOLE SODIUM 40 MG DR TABLET PO SCH (08:53)
[2021-09-12] MEDS: ALLOPURINOL 100 MG TABLET PO SCH ×2 (08:54→21:26)
[2021-09-12] MEDS: SODIUM CHLORIDE 1 GM TABLET PO SCH ×2 (08:55→18:00)
[2021-09-12] MEDS: HEPARIN SODIUM,PORCINE 5,000 UNITS/ML VIAL SQ SCH ×2 (08:55→17:12)
[2021-09-12] MEDS: DOCUSATE SODIUM 100 MG CAPSULE PO SCH ×2 (08:55→21:26)
[2021-09-12] MEDS: CEFTAROLINE 600 MG/D5W 250 ML IV SCH ×2 (09:04→17:12)
[2021-09-12] MEDS: VANCOMYCIN HCL 750 MG in DEXTROSE 5%-WATER 250 ML IV SCH ×2 (11:37→21:27)
[2021-09-12] MEDS ORDERED: FUROSEMIDE 40 MG/4 ML VIAL IVP ONE (13:15)
[2021-09-12] MEDS: ZOLPIDEM TARTRATE 5 MG TABLET PO PRN (21:26)
[2021-09-13] MEDS: HEPARIN SODIUM,PORCINE 5,000 UNITS/ML VIAL SQ SCH ×3 (00:12→17:06)
[2021-09-13] MEDS: SODIUM CHLORIDE 1 GM TABLET PO SCH ×4 (00:12→18:20)
[2021-09-13] MEDS: HYDROCODONE/ACETAMINOPHEN 5-325 MG TABLET PO PRN ×4 (02:20→20:05)
[2021-09-13 05:39] VITALS: BP 113/76
[2021-09-13 07:50] LABS: CALCIUM, TOTAL 8.9 mg/dL (8.8-10.5); CREATININE 1.29 mg/dL (0.60-1.30); POTASSIUM 4.2 mmol/L (3.5-5.1); VANCOMYCIN,RANDOM 23.8 mcg/mL (25.0-50.0)
[2021-09-13 08:11] VITALS: BP 109/76
[2021-09-13] MEDS: DOCUSATE SODIUM 100 MG CAPSULE PO SCH ×2 (09:00→20:05)
[2021-09-13] MEDS: PANTOPRAZOLE SODIUM 40 MG DR TABLET PO SCH (09:14)
[2021-09-13] MEDS: ALLOPURINOL 100 MG TABLET PO SCH ×2 (09:14→20:05)
[2021-09-13] MEDS ORDERED: VANCOMYCIN HCL 1.25 GM in DEXTROSE 5%-WATER 250 ML IV ONE (11:00)
[2021-09-13 11:47] VITALS: BP 116/80
[2021-09-13 15:09] VITALS: BP 118/83
[2021-09-13] MEDS: MORPHINE SULFATE 2 MG/ML SYRINGE IVP PRN ×2 (17:07→22:58)
[2021-09-13] MEDS: ZOLPIDEM TARTRATE 5 MG TABLET PO PRN (20:05)
[2021-09-13 20:35] VITALS: BP 115/76
[2021-09-13 23:48] VITALS: BP 123/94
[2021-09-14] MEDS: SODIUM CHLORIDE 1 GM TABLET PO SCH ×4 (01:22→18:00)
[2021-09-14] MEDS: HEPARIN SODIUM,PORCINE 5,000 UNITS/ML VIAL SQ SCH ×3 (01:23→16:00)
[2021-09-14] MEDS: HYDROCODONE/ACETAMINOPHEN 5-325 MG TABLET PO PRN ×2 (01:23→17:04)
[2021-09-14 05:34] VITALS: BP 129/82
[2021-09-14] MEDS: MORPHINE SULFATE 2 MG/ML SYRINGE IVP PRN (05:40)
[2021-09-14 07:32] VITALS: BP 127/90
[2021-09-14] MEDS ORDERED: VANCOMYCIN HCL 1.5 GM in DEXTROSE 5%-WATER 250 ML IV SCH (08:00)
[2021-09-14 08:51] LABS: ANION GAP 10 mmol/L (8-16); CALCIUM, TOTAL 9.4 mg/dL (8.8-10.5); CARBON DIOXIDE 21 mmol/L (22-29); CHLORIDE 103 mmol/L (98-107); CREATININE 1.15 mg/dL (0.60-1.30); GLOMERULAR FILTR. RATE CALC > 60 mL/min (>60); GLUCOSE,RANDOM 83 mg/dL (70-110); POTASSIUM 4.1 mmol/L (3.5-5.1); SODIUM SERUM 134 mmol/L (136-145); UREA NITROGEN, BLOOD 26 mg/dL (7-18)
[2021-09-14] MEDS: DOCUSATE SODIUM 100 MG CAPSULE PO SCH (09:17)
[2021-09-14] MEDS: PANTOPRAZOLE SODIUM 40 MG DR TABLET PO SCH (09:17)
[2021-09-14] MEDS: ALLOPURINOL 100 MG TABLET PO SCH (09:18)
[2021-09-14 11:05] VITALS: BP 105/69
[2021-09-14 20:00] VITALS: BP 131/95
== END 2021-09-14 20:37 | disposition left against medical advice (07) | DRG 871 ==
LOC: EMS 13:51 → 5S 08-30 04:00 → ICU 08-30 11:15 → 5S 08-31 15:00
PROVIDERS: ADMIT Internal Medicine; ATTEND Internal Medicine
PROC: 05HY33Z Insertion of Infusion Device into Upper Vein, Percutaneous Approach (ICD-10-PCS; 2021-08-31)
PROC: 0S9D3ZZ Drainage of Left Knee Joint, Percutaneous Approach (ICD-10-PCS; principal; 2021-09-05)
DX: A41.02 Sepsis due to Methicillin resistant Staphylococcus aureus (principal); J96.21 Acute and chronic respiratory failure with hypoxia; R65.21 Severe sepsis with septic shock; N17.0 Acute kidney failure with tubular necrosis; E44.0 Moderate protein-calorie malnutrition; E87.1 Hypo-osmolality and hyponatremia; I13.0 Hypertensive heart and chronic kidney disease with heart failure and stage 1 through stage 4 chronic kidney disease, or unspecified chronic kidney disease; I45.2 Bifascicular block; M00.862 Arthritis due to other bacteria, left knee; Z66 Do not resuscitate; M60.9 Myositis, unspecified; F19.10 Other psychoactive substance abuse, uncomplicated; E83.41 Hypermagnesemia; M25.462 Effusion, left knee; M25.572 Pain in left ankle and joints of left foot; E78.5 Hyperlipidemia, unspecified; I27.29 Other secondary pulmonary hypertension; M10.9 Gout, unspecified; I50.810 Right heart failure, unspecified; N18.9 Chronic kidney disease, unspecified; Z87.891 Personal history of nicotine dependence; Z99.81 Dependence on supplemental oxygen; Z68.33 Body mass index [BMI] 33.0-33.9, adult; Z79.82 Long term (current) use of aspirin; Z79.899 Other long term (current) drug therapy
CPT/HCPCS: 10022; 36245; 36569; 51702; 71045; 71250; 73700; 73721; 76770; 76937; 80048; 80053; 80202; 81001; 82570; 83605; 83735; 83880; 84100; 84145; 84300; 84484; 84540; 84550; 85025; 85610; 85651; 86140; 87040; 87075; 87077; 87081; 87205; 89051; 89060; 93005; 93306; 97162; 99285; G0378; J0712; J0878; J1644; J1940; J2001; J2270; J2370; J3370; J3490; J7030; J7040; J7050; J7060; Q9967; 36415-L1; 36415-TC; 87070